=== PATIENT | male | born 1945 | race Two or more races ===

== ENCOUNTER 2025-01-21 09:56 | Outpatient (CLI) | payer OTHER | END 2025-01-21 09:59 | disposition home or self-care (01) | LOC: NUCLEAR 09:56 | PROVIDERS: ATTEND Specialist | DX: I87.2 Venous insufficiency (chronic) (peripheral) (principal) ==

== ENCOUNTER → 2025-01-24 | Outpatient (CLI) | payer OTHER | END | disposition home or self-care (01) | LOC: NUCLEAR 08:41 | PROVIDERS: ATTEND Specialist | DX: I73.9 Peripheral vascular disease, unspecified (principal) ==

== ENCOUNTER 2025-05-03 07:10 | Outpatient (CLI) | payer OTHER | END 2025-05-03 07:12 | disposition home or self-care (01) | LOC: NUCLEAR 07:10 | PROVIDERS: ATTEND Radiology Radiation Oncology | DX: C44.722 Squamous cell carcinoma of skin of right lower limb, including hip (principal) | CPT/HCPCS: 78816; A9552 ==